=== PATIENT | female | born 1930 | race Caucasian/White ===

== ENCOUNTER 2016-12-13 16:42 | Inpatient (IN) | payer MEDICARE, MEDICAID ==
[~2016-12-13] VITALS: Ht 154.9 cm; Wt 60.3 kg
--- NOTE | 2016-12-13 17:31 | Emergency Room Report ---
History of Present Illness General Chief Complaint: Multiple Trauma/Fall Source: Patient Present Illness HPI This is an 86-year-old female presented after having a recent fall. Patient had been noted to have multiple episodes of falls over the past 2 weeks. Patient had become increasingly dizzy. She was noted to be taking meclizine patient had also been noted to have some increased swelling to her left ankle. Patient had been followed by Dr. Mark Anthony Smith. 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 Review of Systems All Other Systems: negative except mentioned in HPI Physical Exam Vital Signs Date Time Temp Pulse Resp B/P Pulse Ox O2 Delivery O2 Flow Rate FiO2 12/13/16 16:40 98.2 71 12 175/90 99 Room Air Sp02 EP Interpretation: reviewed, normal General Appearance: normal inspection, well appearing, no apparent distress, alert, GCS 15 Head: atraumatic ENT: normal ENT inspection, hearing grossly normal, normal voice Neck: normal inspection, full range of motion, supple, no bony tend Respiratory: normal inspection, lungs clear, normal breath sounds, no respiratory distress, no retraction, no wheezing Cardiovascular #1: regular rate, rhythm, no edema Gastrointestinal: normal inspection, normal bowel sounds, non tender, soft, no guarding, no hernia Genitourinary: no CVA tenderness Musculoskeletal: normal inspection, back normal, normal range of motion Neurologic: normal inspection, alert, oriented x3, responsive, 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 X -ray imaging of the left foot presentation rhythm me showed degenerative changes without evident fracture. X-ray of the left tib-fib 3 views interpreted by me showed had degenerative changes without evident fracture normal bony. The pelvis x-ray one view interpreted by me showed degenerative changes without evident fracture. The patient was noted to have a concern for generalized weakness. Patient noted be living by herself. She reportedly has a caregiver who is present [address] Hilliard was contacted for inpatient management due to complexity of medical condition. Laboratory Tests Test 12/13/16 17:20 White Blood Count 4.8 K/UL (4.8-10.8) Red Blood Count 3.91 M/UL (4.20-5.40) L Hemoglobin 13.1 G/DL (12.0-16.0) Hematocrit 38.6 % (37.0-47.0) Mean Corpuscular Volume 99 FL (80-99) Mean Corpuscular Hemoglobin 33.6 PG (27.0-31.0) H Mean Corpuscular Hemoglobin Concent 34.1 G/DL (32.0-36.0) Red Cell Distribution Width 12.9 % (11.6-14.8) Platelet Count 214 K/UL (150-450) Mean Platelet Volume 6.4 FL (6.5-10.1) L Neutrophils (%) (Auto) 70.9 % (45.0-75.0) Lymphocytes (%) (Auto) 13.1 % (20.0-45.0) L Monocytes (%) (Auto) 5.8 % (1.0-10.0) Eosinophils (%) (Auto) 8.5 % (0.0-3.0) H Basophils (%) (Auto) 1.8 % (0.0-2.0) Sodium Level 134 mEQ/L (135-145) L Potassium Level 4.0 mEQ/L (3.4-4.9) Chloride Level 97 mEQ/L (98-107) L Carbon Dioxide Level 25 mEQ/L (20-30) Anion Gap 12 (5-15) Blood Urea Nitrogen 11 mg/dL (7-23) Creatinine 0.8 mg/dL (0.5-0.9) Estimate Glomerular Filtration Rate mL/min (>60) Glucose Level 104 mg/dL (74-106) Calcium Level 10.0 mg/dL (8.6-10.2) Total Bilirubin < 0.2 mg/dL (0.0-1.2) Aspartate Amino Transferase (AST) 12 U/L (5-40) Alanine Aminotransferase (ALT) 9 U/L (3-33) Alkaline Phosphatase 92 U/L (35-104) Total Protein 7.0 g/dL (6.6-8.7) Albumin 3.9 g/dL (3.5-5.2) Globulin 3.1 g/dL Albumin/Globulin Ratio 1.2 (1.0-2.7) EKG Diagnostic Results Rate: normal - 77 Rhythm: NSR ST Segments: other - biphasic tw waves Rhythm Strip Diag. Results EP Interpretation: yes Rhythm: NSR, no PVC's, no ectopy Last Vital Signs Date Time Temp Pulse Resp B/P Pulse Ox O2 Delivery O2 Flow Rate FiO2 12/13/16 16:40 98.2 71 12 175/90 99 Room Air Status: unchanged Disposition: ADMITTED INPATIENT Condition: Serious Referrals: NOT CHOSEN DARY/,REFERRING (PCP) Gabe Dillon Dec 13, 2016 17:31
[2016-12-13] MEDS ORDERED: LYRICA75 M1 ORAL (17:42)
[2016-12-13] MEDS ORDERED: IBUPROFEN600 MG ORAL (17:42)
[2016-12-13] MEDS ORDERED: TRAMADOL HCL50 MG ORAL (17:42)
[2016-12-13] MEDS ORDERED: ELMIRON100 MG ORAL (17:42)
[2016-12-13] MEDS ORDERED: MONTELUKAST SOD10 MG ORAL (17:42)
[2016-12-13] MEDS ORDERED: FERROUS SULFAT325 MG ORAL (17:42)
[2016-12-13] MEDS ORDERED: VOLTAREN100 G1 TP (17:42)
[2016-12-13] MEDS ORDERED: DEXILANT60 MG ORAL (17:42)
[2016-12-13] MEDS ORDERED: BELSOMRA20 MG PO (17:42)
[2016-12-13] MEDS ORDERED: KLONOPIN1 MG ORAL (17:42)
[2016-12-13] MEDS ORDERED: MECLIZINE HCL25 MG ORAL (17:42)
[2016-12-13] MEDS ORDERED: PATADAY2.5 ML OP (17:42)
[2016-12-13] MEDS ORDERED: MYRBETRIQ25 MG PO (17:42)
[2016-12-13] MEDS ORDERED: NASONEX17 GM NASAL (17:42)
[2016-12-13] MEDS ORDERED: OLMESARTAN MEDO20 MG PO (17:42)
[2016-12-13] MEDS ORDERED: ROPINIROLE HC0.25 MG PO (17:42)
[2016-12-13 17:46] LABS: BASOPHILS % (AUTO) 1.8 % (0.0-2.0); EOSINOPHILS % (AUTO) 8.5 % (0.0-3.0); LYMPHOCYTES % (AUTO) 13.1 % (20.0-45.0); MEAN CORPUSCULAR HEMOGLOBIN 33.6 PG (27.0-31.0); MEAN CORPUSCULAR HGB CONC 34.1 G/DL (32.0-36.0); MEAN CORPUSCULAR VOLUME 99 FL (80-99); MEAN PLATELET VOLUME 6.4 FL (6.5-10.1); MONOCYTES % (AUTO) 5.8 % (1.0-10.0); NEUTROPHILS % (AUTO) 70.9 % (45.0-75.0); PLATELET COUNT 214 K/UL (150-450); RED BLOOD COUNT 3.91 M/UL (4.20-5.40); RED CELL DISTRIBUTION WIDTH 12.9 % (11.6-14.8); WHITE BLOOD COUNT 4.8 K/UL (4.8-10.8)
[2016-12-13 17:51] LABS: ALANINE AMINOTRANSFERASE 9 U/L (3-33); ALBUMIN/GLOBULIN RATIO 1.2 (1.0-2.7); ANION GAP 12 (5-15); ASPARTATE AMINO TRANSFERASE 12 U/L (5-40); CARBON DIOXIDE 25 mEQ/L (20-30); CHLORIDE 97 mEQ/L (98-107); CREATININE 0.8 mg/dL (0.5-0.9); HEMOLYSIS 2; SODIUM 134 mEQ/L (135-145)
[2016-12-13 19:44] VITALS: BP 166/82
[2016-12-13] MEDS ORDERED: Miralax 17gm pkt ORAL PRN (20:00)
[2016-12-13] MEDS ORDERED: Nitroglycerin Subl 0.4mg tab (Bottle Of 25) SL PRN (20:00)
[2016-12-13] MEDS ORDERED: Mylanta II UD 30ml ORAL PRN (20:00)
[2016-12-13] MEDS ORDERED: DuoNeb 0.5-3(2.5)mg/3ml neb HHN PRN (20:00)
[2016-12-13] MEDS ORDERED: LORazepam Inj 2mg/ml 1ml IV PRN (20:00)
[2016-12-13 20:44] VITALS: BP 197/95
[2016-12-13] MEDS: Heparin 5000 units/ml inj SUBQ SCH (22:16)
[2016-12-13 23:53] VITALS: BP 150/73
[2016-12-14 03:55] VITALS: BP 150/76
[2016-12-14 07:46] LABS: INR 0.9 (0.9-1.1); PROTHROMBIN TIME 9.9 SEC (9.30-11.50)
[2016-12-14 07:54] LABS: BASOPHILS % (AUTO) 1.1 % (0.0-2.0); EOSINOPHILS % (AUTO) 11.6 % (0.0-3.0); LYMPHOCYTES % (AUTO) 15.8 % (20.0-45.0); MEAN CORPUSCULAR HEMOGLOBIN 32.2 PG (27.0-31.0); MEAN CORPUSCULAR HGB CONC 33.1 G/DL (32.0-36.0); MEAN CORPUSCULAR VOLUME 97 FL (80-99); NEUTROPHILS % (AUTO) 63.6 % (45.0-75.0); PLATELET COUNT 208 K/UL (150-450); RED BLOOD COUNT 3.86 M/UL (4.20-5.40); RED CELL DISTRIBUTION WIDTH 12.6 % (11.6-14.8); WHITE BLOOD COUNT 3.8 K/UL (4.8-10.8)
[2016-12-14 08:00] VITALS: BP 142/74
[2016-12-14 08:01] LABS: ALANINE AMINOTRANSFERASE 9 U/L (3-33); ALBUMIN/GLOBULIN RATIO 1.3 (1.0-2.7); ANION GAP 14 (5-15); ASPARTATE AMINO TRANSFERASE 12 U/L (5-40); CALCIUM 9.4 mg/dL (8.6-10.2); CARBON DIOXIDE 23 mEQ/L (20-30); CHLORIDE 100 mEQ/L (98-107); CHOLESTEROL 276 mg/dL (< 200); CHOLESTEROL/HDL RATIO 4.9 (3.3-4.4); CREATININE 0.7 mg/dL (0.5-0.9); HEMOLYSIS 2; LDL CHOLESTEROL (CALC.) 182 mg/dL (60-99); POTASSIUM 3.9 mEQ/L (3.4-4.9); SODIUM 137 mEQ/L (135-145); TOTAL PROTEIN 6.5 g/dL (6.6-8.7)
[2016-12-14] MEDS ORDERED: Lyrica 50mg cap ORAL SCH (09:00)
[2016-12-14] MEDS: rOPINIRole 0.25mg tab ORAL SCH ×2 (09:11→13:00)
[2016-12-14] MEDS: Morphine Sulfate 2mg/ml Inj IVP PRN ×2 (09:13→09:23)
[2016-12-14] MEDS: Heparin 5000 units/ml inj SUBQ SCH (09:14)
--- NOTE | 2016-12-14 09:46 | Diagnostic Imaging Report ---
Indication: PAIN Technique: spiral acquisitions obtained through the brain. Angled axial and coronal 5 x 5 mm slices were reconstructed. No IV contrast utilized. Radiation dose was minimized using automated exposure control Total dose length product 1474 mGycm. CTDIvol(s) 70 mGy Comparison: none FINDINGS: No acute hemorrhage or edema. No mass effect or midline shift. There is age-related enlargement of the ventricles and extra axial CSF spaces. There is periventricular deep white matter ischemic change. Normal greenberg-white differentiation. Visualized orbits are unremarkable. Visualized sinuses are unremarkable. Intact calvarium. IMPRESSION: Chronic and age-related changes. Negative for acute intracranial bleed or mass effect This agrees with the preliminary interpretation provided overnight by Dr. Hsu The CT scanner at [facility] is accredited by the [employer] and the scans are performed using protocols designed to limit radiation exposure to as low as reasonably achievable to attain images of sufficient resolution adequate for diagnostic evaluation
--- NOTE | 2016-12-14 10:36 | Diagnostic Imaging Report ---
Indication: PAIN Technique: 3 views of the left ankle Comparison: none Findings: No acute fractures. No dislocations. Bones are osteoporotic. Joint spaces are preserved. Impression: Osteoporosis No definite acute bony trauma
--- NOTE | 2016-12-14 10:38 | Diagnostic Imaging Report ---
Indication: PAIN Technique: 3 views left foot Comparison: none Findings: No acute fractures. No dislocations. There are hammertoe deformities of the second through fifth digits. The joint spaces are preserved. The bones are osteoporotic Impression: No acute bony trauma . Findings as noted
--- NOTE | 2016-12-14 10:41 | Diagnostic Imaging Report ---
Indication: PAIN Technique: One view of the pelvis Comparison: None Findings: Calcification in the mid pelvis is consistent with old uterine fibroid. No definite acute fractures. No dislocations. Joint spaces are preserved. Bones are osteoporotic. There are degenerative changes of the lumbosacral junction. Surgical clip is seen in the left pelvis Impression: No definite acute bony trauma Note, however, that in elderly osteoporotic patients, nondisplaced hip or pelvic fractures can easily be occult. Consider bone scan or cross-sectional imaging for further evaluation if there is high clinical suspicion
[2016-12-14 12:00] VITALS: BP 148/73
--- NOTE | 2016-12-14 14:19 | Neurology Progress Note ---
Objective Physical Exam Last Vital Signs Date Time Temp Pulse Resp B/P Pulse Ox O2 Delivery O2 Flow Rate FiO2 12/14/16 12:00 97.7 75 19 148/73 92 Room Air Laboratory Tests Test 12/13/16 17:20 12/14/16 06:15 White Blood Count 4.8 K/UL (4.8-10.8) 3.8 K/UL (4.8-10.8) L Red Blood Count 3.91 M/UL (4.20-5.40) L 3.86 M/UL (4.20-5.40) L Hemoglobin 13.1 G/DL (12.0-16.0) 12.4 G/DL (12.0-16.0) Hematocrit 38.6 % (37.0-47.0) 37.6 % (37.0-47.0) Mean Corpuscular Volume 99 FL (80-99) 97 FL (80-99) Mean Corpuscular Hemoglobin 33.6 PG (27.0-31.0) H 32.2 PG (27.0-31.0) H Mean Corpuscular Hemoglobin Concent 34.1 G/DL (32.0-36.0) 33.1 G/DL (32.0-36.0) Red Cell Distribution Width 12.9 % (11.6-14.8) 12.6 % (11.6-14.8) Platelet Count 214 K/UL (150-450) 208 K/UL (150-450) Mean Platelet Volume 6.4 FL (6.5-10.1) L 6.0 FL (6.5-10.1) L Neutrophils (%) (Auto) 70.9 % (45.0-75.0) 63.6 % (45.0-75.0) Lymphocytes (%) (Auto) 13.1 % (20.0-45.0) L 15.8 % (20.0-45.0) L Monocytes (%) (Auto) 5.8 % (1.0-10.0) 8.0 % (1.0-10.0) Eosinophils (%) (Auto) 8.5 % (0.0-3.0) H 11.6 % (0.0-3.0) H Basophils (%) (Auto) 1.8 % (0.0-2.0) 1.1 % (0.0-2.0) Sodium Level 134 mEQ/L (135-145) L 137 mEQ/L (135-145) Potassium Level 4.0 mEQ/L (3.4-4.9) 3.9 mEQ/L (3.4-4.9) Chloride Level 97 mEQ/L (98-107) L 100 mEQ/L (98-107) Carbon Dioxide Level 25 mEQ/L (20-30) 23 mEQ/L (20-30) Anion Gap 12 (5-15) 14 (5-15) Blood Urea Nitrogen 11 mg/dL (7-23) 11 mg/dL (7-23) Creatinine 0.8 mg/dL (0.5-0.9) 0.7 mg/dL (0.5-0.9) Estimat Glomerular Filtration Rate mL/min (>60) mL/min (>60) Glucose Level 104 mg/dL (74-106) 113 mg/dL (74-106) H Calcium Level 10.0 mg/dL (8.6-10.2) 9.4 mg/dL (8.6-10.2) Total Bilirubin < 0.2 mg/dL (0.0-1.2) 0.2 mg/dL (0.0-1.2) Aspartate Amino Transf (AST/SGOT) 12 U/L (5-40) 12 U/L (5-40) Alanine Aminotransferase (ALT/SGPT) 9 U/L (3-33) 9 U/L (3-33) Alkaline Phosphatase 92 U/L (35-104) 85 U/L (35-104) Total Protein 7.0 g/dL (6.6-8.7) 6.5 g/dL (6.6-8.7) L Albumin 3.9 g/dL (3.5-5.2) 3.7 g/dL (3.5-5.2) Globulin 3.1 g/dL 2.8 g/dL Albumin/Globulin Ratio 1.2 (1.0-2.7) 1.3 (1.0-2.7) Prothrombin Time 9.9 SEC (9.30-11.50) Prothromb Time International Ratio 0.9 (0.9-1.1) Activated Partial Thromboplast Time 30 SEC (23-33) Triglycerides Level 189 mg/dL (< 150) H Cholesterol Level 276 mg/dL (< 200) H LDL Cholesterol 182 mg/dL (60-99) H HDL Cholesterol 56 mg/dL (> 60) Cholesterol/HDL Ratio 4.9 (3.3-4.4) H Thyroid Stimulating Hormone (TSH) 3.450 uIU/mL (0.300-4.500) Impression/Recommendations Problems: (1) Paraparesis of both lower limbs (2) r/o spinal stenosis Recommendations #[id number] JOE PERKINS Dec 14, 2016 14:19
--- NOTE | 2016-12-14 14:42 | History and Physical ---
History of Present Illness General Date patient seen: Dec 13, 2016 Reason for Hospitalization: Multiple Trauma/Fall Present Illness HPI 86-year-old female with hx of HTN, dizziness, on multiple meds presented after having a recent fall. Patient had been noted to have multiple episodes of falls over the past 2 weeks. Patient had become increasingly dizzy. She didn' t loose consciousness. she is complaining of left ankle pain. XR's in ER didn' t show any fracture. Allergies: Coded Allergies: No Known Allergies (Unverified , 12/13/16) Medication History Scheduled Clonazepam* (Klonopin*), 1 MG ORAL TID, (Reported) Dexlansoprazole (Dexilant), 60 MG ORAL DAILY, (Reported) Diclofenac Sodium (Voltaren), 100 GM TP PRN, (Reported) Ferrous Sulfate* (Ferrous Sulfate*), 325 MG ORAL DAILY, (Reported) Meclizine Hcl* (Meclizine*), 25 MG ORAL THREE TIMES A DAY, (Reported) Mirabegron (Myrbetriq), 25 MG PO DAILY, (Reported) Mometasone Furoate (Nasonex), 2 SPRAYS NASAL DAILY, (Reported) Montelukast Sodium* (Montelukast Sodium*), 10 MG ORAL DAILY, (Reported) Olmesartan Medoxomil (Olmesartan Medoxomil), 20 MG PO DAILY, (Reported) Pentosan Polysulfate Sodium* (Elmiron*), 100 MG ORAL DAILY, (Reported) Pregabalin* (Lyrica*), 50 MG ORAL DAILY, (Reported) Ropinirole Hcl* (Ropinirole Hcl*), 0.25 MG PO TID, (Reported) Suvorexant (Belsomra), 20 MG PO DAILY, (Reported) Scheduled PRN Ibuprofen* (Motrin*), 600 MG ORAL Q6H PRN for For Pain, (Reported) Tramadol Hcl* (Ultram*), 50 MG ORAL Q6H PRN for For Pain, (Reported) Miscellaneous Medications Olopatadine Hcl (Pataday), 2.5 ML OP, (Reported) Patient History Healthcare decision maker Resuscitation status Full Code Advanced Directive on File No Past Medical/Surgical History Past Medical/Surgical History: (1) Paraparesis of both lower limbs (2) Generalized weakness Review of Systems All Other Systems: negative except mentioned in HPI Physical Exam General Appearance: WD/WN Lines, tubes and drains: peripheral HEENT: normocephalic, anicteric Neck: non-tender, normal alignment Respiratory/Chest: chest wall non-tender, normal breath sounds Breasts: no masses Cardiovascular/Chest: normal peripheral pulses Abdomen: normal bowel sounds, non tender Genitourinary/Rectal: normal genital exam Extremities: normal range of motion 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 Last 24 Hour Vital Signs Date Time Temp Pulse Resp B/P Pulse Ox O2 Delivery O2 Flow Rate FiO2 12/14/16 12:00 97.7 75 19 148/73 92 Room Air 12/14/16 08:00 97.9 69 19 142/74 95 Room Air 12/14/16 07:39 Room Air 12/14/16 07:38 95 Room Air 12/14/16 07:37 71 18 Room Air 12/14/16 04:39 71 12/14/16 03:55 97.2 72 18 150/76 92 Room Air 12/14/16 00:00 78 12/13/16 23:53 96.8 80 18 150/73 92 Room Air 12/13/16 20:44 97.8 70 19 197/95 94 Room Air 12/13/16 20:13 73 15 165/68 98 Room Air 12/13/16 19:44 98.9 75 15 166/82 96 Room Air 12/13/16 16:40 98.2 71 12 175/90 99 Room Air Laboratory Tests Test 12/13/16 17:20 12/14/16 06:15 White Blood Count 4.8 K/UL (4.8-10.8) 3.8 K/UL (4.8-10.8) L Red Blood Count 3.91 M/UL (4.20-5.40) L 3.86 M/UL (4.20-5.40) L Hemoglobin 13.1 G/DL (12.0-16.0) 12.4 G/DL (12.0-16.0) Hematocrit 38.6 % (37.0-47.0) 37.6 % (37.0-47.0) Mean Corpuscular Volume 99 FL (80-99) 97 FL (80-99) Mean Corpuscular Hemoglobin 33.6 PG (27.0-31.0) H 32.2 PG (27.0-31.0) H Mean Corpuscular Hemoglobin Concent 34.1 G/DL (32.0-36.0) 33.1 G/DL (32.0-36.0) Red Cell Distribution Width 12.9 % (11.6-14.8) 12.6 % (11.6-14.8) Platelet Count 214 K/UL (150-450) 208 K/UL (150-450) Mean Platelet Volume 6.4 FL (6.5-10.1) L 6.0 FL (6.5-10.1) L Neutrophils (%) (Auto) 70.9 % (45.0-75.0) 63.6 % (45.0-75.0) Lymphocytes (%) (Auto) 13.1 % (20.0-45.0) L 15.8 % (20.0-45.0) L Monocytes (%) (Auto) 5.8 % (1.0-10.0) 8.0 % (1.0-10.0) Eosinophils (%) (Auto) 8.5 % (0.0-3.0) H 11.6 % (0.0-3.0) H Basophils (%) (Auto) 1.8 % (0.0-2.0) 1.1 % (0.0-2.0) Sodium Level 134 mEQ/L (135-145) L 137 mEQ/L (135-145) Potassium Level 4.0 mEQ/L (3.4-4.9) 3.9 mEQ/L (3.4-4.9) Chloride Level 97 mEQ/L (98-107) L 100 mEQ/L (98-107) Carbon Dioxide Level 25 mEQ/L (20-30) 23 mEQ/L (20-30) Anion Gap 12 (5-15) 14 (5-15) Blood Urea Nitrogen 11 mg/dL (7-23) 11 mg/dL (7-23) Creatinine 0.8 mg/dL (0.5-0.9) 0.7 mg/dL (0.5-0.9) Estimat Glomerular Filtration Rate mL/min (>60) mL/min (>60) Glucose Level 104 mg/dL (74-106) 113 mg/dL (74-106) H Calcium Level 10.0 mg/dL (8.6-10.2) 9.4 mg/dL (8.6-10.2) Total Bilirubin < 0.2 mg/dL (0.0-1.2) 0.2 mg/dL (0.0-1.2) Aspartate Amino Transf (AST/SGOT) 12 U/L (5-40) 12 U/L (5-40) Alanine Aminotransferase (ALT/SGPT) 9 U/L (3-33) 9 U/L (3-33) Alkaline Phosphatase 92 U/L (35-104) 85 U/L (35-104) Total Protein 7.0 g/dL (6.6-8.7) 6.5 g/dL (6.6-8.7) L Albumin 3.9 g/dL (3.5-5.2) 3.7 g/dL (3.5-5.2) Globulin 3.1 g/dL 2.8 g/dL Albumin/Globulin Ratio 1.2 (1.0-2.7) 1.3 (1.0-2.7) Prothrombin Time 9.9 SEC (9.30-11.50) Prothromb Time International Ratio 0.9 (0.9-1.1) Activated Partial Thromboplast Time 30 SEC (23-33) Triglycerides Level 189 mg/dL (< 150) H Cholesterol Level 276 mg/dL (< 200) H LDL Cholesterol 182 mg/dL (60-99) H HDL Cholesterol 56 mg/dL (> 60) Cholesterol/HDL Ratio 4.9 (3.3-4.4) H Thyroid Stimulating Hormone (TSH) 3.450 uIU/mL (0.300-4.500) Height (Feet): 5 Height (Inches): 1.00 Weight (Pounds): 133 Medications Current Medications Medications (Trade) Dose Ordered Sig/Maryanne Route PRN Reason Start Time Stop Time Status Last Admin Dose Admin Acetaminophen (Tylenol) 650 mg Q4H PRN ORAL fever 12/13/16 20:00 01/12/17 19:59 12/14/16 09:28 Al Hydroxide/Mg Hydroxide (Mylanta II) 30 ml Q6H PRN ORAL dyspepsia 12/13/16 20:00 8/26/17 19:59 Albuterol/ Ipratropium (DuoNeb 0.5-3(2.5)mg/3ml) 3 ml Q4H PRN HHN Shortness of Breath 12/13/16 20:00 12/18/16 19:59 Clonidine HCl (Catapres) 0.1 mg Q4H PRN ORAL SBP > 160 12/13/16 20:00 01/12/17 19:59 Dextrose (Dextrose 50%) STAT PRN IV Hypoglycemia 12/13/16 20:00 01/12/17 19:59 Heparin Sodium (Porcine) (Heparin 5000 units/ml) 5,000 units EVERY 12 HOURS SUBQ 12/13/16 21:00 01/12/17 20:59 12/14/16 09:14 Lorazepam (Ativan 2mg/ml 1ml) 0.5 mg Q4H PRN IV For Anxiety 12/13/16 20:00 12/20/16 19:59 Morphine Sulfate (Morphine Sulfate) 1 mg Q4H PRN IVP For Pain 7-12/13/16 20:00 12/20/16 19:59 12/14/16 09:13 Nitroglycerin (Ntg) 0.4 mg Q5M X 3 DOSES PRN SL Prn Chest Pain 12/13/16 20:00 01/12/17 19:59 Ondansetron HCl (Zofran) 4 mg Q6H PRN IVP Nausea & Vomiting 12/13/16 20:00 01/12/17 19:59 Polyethylene Glycol (Miralax) 17 gm HSPRN PRN ORAL Constipation 12/13/16 20:00 01/12/17 19:59 Pregabalin (Lyrica) 50 mg DAILY ORAL 12/14/16 09:00 01/13/17 08:59 Ropinirole HCl (Requip) 0.25 mg TID ORAL 12/14/16 09:00 01/13/17 08:59 12/14/16 09:11 Temazepam (Restoril) 15 mg HSPRN PRN ORAL Insomnia 12/13/16 20:00 12/20/16 19:59 12/13/16 22:16 Assessment/Plan Problem List: (1) Near syncope ICD Codes: R55 - Syncope and collapse SNOMED: 313975075, 524225851 (2) intractable dizziness (3) Paraparesis of both lower limbs ICD Codes: G82.20 - Paraplegia, unspecified SNOMED: 7949410 (4) Fall ICD Codes: W19.XXXA - Unspecified fall, initial encounter SNOMED: 0873706, 656490860 (5) Generalized weakness ICD Codes: R53.1 - Weakness SNOMED: 11186976 Assessment/Plan telemetry neuro evaluation echocardiogram doppler of carotid artery. dvt prophylaxis. DIALLO LYNN Dec 14, 2016 14:42
--- NOTE | 2016-12-14 14:44 | Pulmonology Progress Note ---
Assessment/Plan Problems: (1) Near syncope (2) intractable dizziness (3) Paraparesis of both lower limbs (4) Fall (5) Generalized weakness Assessment/Plan talked to daughter at the bed site pt/ot pending neuro evaluating now echo done, results pending. Subjective ROS Limited/Unobtainable: No Interval Events: no new complains Allergies: Coded Allergies: No Known Allergies (Unverified , 12/13/16) Objective Last 24 Hour Vital Signs Date Time Temp Pulse Resp B/P Pulse Ox O2 Delivery O2 Flow Rate FiO2 12/14/16 12:00 97.7 75 19 148/73 92 Room Air 12/14/16 08:00 97.9 69 19 142/74 95 Room Air 12/14/16 07:39 Room Air 12/14/16 07:38 95 Room Air 12/14/16 07:37 71 18 Room Air 12/14/16 04:39 71 12/14/16 03:55 97.2 72 18 150/76 92 Room Air 12/14/16 00:00 78 12/13/16 23:53 96.8 80 18 150/73 92 Room Air 12/13/16 20:44 97.8 70 19 197/95 94 Room Air 12/13/16 20:13 73 15 165/68 98 Room Air 12/13/16 19:44 98.9 75 15 166/82 96 Room Air 12/13/16 16:40 98.2 71 12 175/90 99 Room Air General Appearance: cachetic HEENT: normocephalic, atraumatic, PERRL Respiratory/Chest: lungs clear Cardiovascular: normal peripheral pulses, normal rate Abdomen: normal bowel sounds, soft, non tender Extremities: no cyanosis 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, normal mood/affect Musculoskeletal: normal muscle bulk Laboratory Tests 12/13/16 17:20: White Blood Count 4.8, Red Blood Count 3.91L, Hemoglobin 13.1, Hematocrit 38.6, Mean Corpuscular Volume 99, Mean Corpuscular Hemoglobin 33.6H, Mean Corpuscular Hemoglobin Concent 34.1, Red Cell Distribution Width 12.9, Platelet Count 214, Mean Platelet Volume 6.4L, Neutrophils (%) (Auto) 70.9, Lymphocytes (%) (Auto) 13.1L, Monocytes (%) (Auto) 5.8, Eosinophils (%) (Auto) 8.5H, Basophils (%) ( Auto) 1.8, Sodium Level 134L, Potassium Level 4.0, Chloride Level 97L, Carbon Dioxide Level 25, Anion Gap 12, Blood Urea Nitrogen 11, Creatinine 0.8, Estimat Glomerular Filtration Rate , Glucose Level 104, Calcium Level 10.0, Total Bilirubin < 0.2, Aspartate Amino Transf (AST/SGOT) 12, Alanine Aminotransferase (ALT/SGPT) 9, Alkaline Phosphatase 92, Total Protein 7.0, Albumin 3.9, Globulin 3.1, Albumin/Globulin Ratio 1.2 12/14/16 06:15: White Blood Count 3.8L, Red Blood Count 3.86L, Hemoglobin 12.4, Hematocrit 37.6 , Mean Corpuscular Volume 97, Mean Corpuscular Hemoglobin 32.2H, Mean Corpuscular Hemoglobin Concent 33.1, Red Cell Distribution Width 12.6, Platelet Count 208, Mean Platelet Volume 6.0L, Neutrophils (%) (Auto) 63.6, Lymphocytes ( %) (Auto) 15.8L, Monocytes (%) (Auto) 8.0, Eosinophils (%) (Auto) 11.6H, Basophils (%) (Auto) 1.1, Sodium Level 137, Potassium Level 3.9, Chloride Level 100, Carbon Dioxide Level 23, Anion Gap 14, Blood Urea Nitrogen 11, Creatinine 0.7, Estimat Glomerular Filtration Rate , Glucose Level 113H, Calcium Level 9.4 , Total Bilirubin 0.2, Aspartate Amino Transf (AST/SGOT) 12, Alanine Aminotransferase (ALT/SGPT) 9, Alkaline Phosphatase 85, Total Protein 6.5L, Albumin 3.7, Globulin 2.8, Albumin/Globulin Ratio 1.3, Prothrombin Time 9.9, Prothromb Time International Ratio 0.9, Activated Partial Thromboplast Time 30, Triglycerides Level 189H, Cholesterol Level 276H, LDL Cholesterol 182H, HDL Cholesterol 56, Cholesterol/HDL Ratio 4.9H, Thyroid Stimulating Hormone (TSH) 3.450 Current Medications Medications (Trade) Dose Ordered Sig/Maryanne Route PRN Reason Start Time Stop Time Status Last Admin Dose Admin Acetaminophen (Tylenol) 650 mg Q4H PRN ORAL fever 12/13/16 20:00 01/12/17 19:59 12/14/16 09:28 Al Hydroxide/Mg Hydroxide (Mylanta II) 30 ml Q6H PRN ORAL dyspepsia 12/13/16 20:00 01/12/17 19:59 Albuterol/ Ipratropium (DuoNeb 0.5-3(2.5)mg/3ml) 3 ml Q4H PRN HHN Shortness of Breath 12/13/16 20:00 12/18/16 19:59 Clonidine HCl (Catapres) 0.1 mg Q4H PRN ORAL SBP > 160 12/13/16 20:00 01/12/17 19:59 Dextrose (Dextrose 50%) STAT PRN IV Hypoglycemia 12/13/16 20:00 01/12/17 19:59 Heparin Sodium (Porcine) (Heparin 5000 units/ml) 5,000 units EVERY 12 HOURS SUBQ 12/13/16 21:00 01/12/17 20:59 12/14/16 09:14 Lorazepam (Ativan 2mg/ml 1ml) 0.5 mg Q4H PRN IV For Anxiety 12/13/16 20:00 12/20/16 19:59 Morphine Sulfate (Morphine Sulfate) 1 mg Q4H PRN IVP For Pain 7-12/13/16 20:00 12/20/16 19:59 12/14/16 09:13 Nitroglycerin (Ntg) 0.4 mg Q5M X 3 DOSES PRN SL Prn Chest Pain 12/13/16 20:00 01/12/17 19:59 Ondansetron HCl (Zofran) 4 mg Q6H PRN IVP Nausea & Vomiting 12/13/16 20:00 01/12/17 19:59 Polyethylene Glycol (Miralax) 17 gm HSPRN PRN ORAL Constipation 12/13/16 20:00 01/12/17 19:59 Pregabalin (Lyrica) 50 mg DAILY ORAL 12/14/16 09:00 01/13/17 08:59 Ropinirole HCl (Requip) 0.25 mg TID ORAL 12/14/16 09:00 01/13/17 08:59 12/14/16 09:11 Temazepam (Restoril) 15 mg HSPRN PRN ORAL Insomnia 12/13/16 20:00 12/20/16 19:59 12/13/16 22:16 DIALLO LYNN Dec 14, 2016 14:44
[2016-12-14 16:00] VITALS: BP 153/88
--- NOTE | 2016-12-15 01:46 | Consultation ---
DATE OF CONSULTATION: 12/14/2016 NEUROLOGICAL CONSULTATION CONSULTING PHYSICIAN: Walt Santoyo M.D. REQUESTING PHYSICIAN: Kristen Hilliard M.D. HISTORY OF PRESENT ILLNESS: This is an 86-year-old female, seen in neurological consultation to evaluate a recent onset of recurrent fall. The patient informed me that about a month ago, she started to develop increasing difficulty with balance. She would use initially cane, but still was unable to hold on and fall so she started to use walker, even with a walker she had a recent fall when she was at home alone, she was found by the family one or two hours later, there was no loss of consciousness. No urine or bowel incontinence. No tongue biting, but there were multiple bruises from fall including a bump on her head. The patient now was brought to this facility after having another episode of fall. She described it as she was standing up from her bed and tried to use walker, she lost balance and fell down. Again, there was no loss of consciousness or other associated symptomatology. The patient apparently was suspected to have dizziness, started on meclizine, felt no improvement. On arrival to the hospital, blood pressure 175/90, temperature 98.2. Head normocephalic. There is no evidence of trauma. There was swelling on the left foot. Laboratory work was obtained revealed normal CBC studies, normal coagulation panel, and chemistry panel with elevated triglycerides 189, LDL 182, and glucose 113 otherwise normal study. Imaging included CT of the brain revealed chronic age-related changes, enlargement of ventricles, periventricular deep white matter ischemic changes. X-ray of the hip and pelvis, no fracture, but there is osteoporosis and degenerative changes. Her x-ray of the foot, no acute bony abnormalities and x-ray of ankle signs of osteoporosis, no fractures noted. Since admission till present, there was no further changes in her status. The patient had 2D echocardiogram revealed ejection fraction of 55% and 60% with no evidence of mural thrombi noted. 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 MEDICATIONS: She is on Voltaren, ferrous sulfate, Motrin, meclizine, Myrbetriq, Nasonex, , Elmiron, allopurinol, Belsomra, and tramadol as needed. ALLERGIES: None reported. SOCIAL HISTORY: Lives at home alone, but refusing to have a home care or caregiver. Family helps her on daily basis. No alcohol. No drug abuse. Nonsmoker. FAMILY HISTORY: Noncontributory. REVIEW OF SYMPTOMS: Generalized aches and pains from falling, but denies headache. No vertigo. There is some decrease in hearing. No urine or bowel incontinence. Never had a transient loss of consciousness. No seizure activities. No chest pain. No palpitations. Denies respiratory abnormality. No abdominal pain or discomfort. PHYSICAL EXAMINATION: GENERAL: A well-developed and well-nourished, elderly lady, lying comfortably in bed. Her family at bedside. VITAL SIGNS: Stable. Blood pressure 142/73 and temperature 97.7. HEENT: Head normocephalic. There is no head trauma. Eyes, ears, and throat are clear. Edentulous. NECK: Supple. No meningeal signs. MUSCULOSKELETAL EXAMINATION: Tenderness to palpation of lumbar paraspinal region. Tenderness to palpation on areas of bruise on her both lower extremities with multiple bruises noted. Peripheral pulses 1+ symmetric. MENTAL STATUS: She is fully alert and oriented x3. Speech is fluent. Language intact. There is no aphasia or apraxia. Cognitive function normal. CRANIAL NERVE II: Pupils both responding to light and accommodation. Extraocular movements intact. No nystagmus. CRANIAL NERVE V: Normal corneal responses. CRANIAL NERVE VII: No facial asymmetry. CRANIAL NERVE VIII: Grossly normal hearing. CRANIAL NERVES IX THROUGH XII: Tongue is in midline. Symmetric palate elevation. MOTOR EXAMINATION: Normal muscle tone. Strength in both upper extremities. No pronation drift. There is a slight decrease in strength in both lower extremities 5-/5, but 3/5 in the hip flexors bilaterally. Deep tendon reflexes depressed. Biceps, triceps, brachioradialis, knee and ankle jerks. Plantar responses flexor. No pathological responses. Normal coordination. Normal szvrhe-py-otac test and slightly somewhat clumsy vjec-rl-[id number] test bilaterally. GAIT: The patient required assistance to sit up. She was able to stand with some assistance. Positive Romberg test. Gait, small steps, antalgic with full assist. IMPRESSION: 1. This is an 86-year-old female with recent onset of progressive gait abnormality and frequent falls now presenting with mild paraparesis predominately hip flexors, rule out lumbar spinal stenosis, rule out polyneuropathy. 2. Deconditioned. 3. Polypharmacy. RECOMMENDATION: 1. Reduce sedatives. 2. Get a CT of the lumbosacral spine. 3. PT and OT. 4. Daily conditioning exercises. 5. The patient need to live in a protected environment. 6. Laboratory work. Thank you for allowing me to see this interesting patient in neurological consultation. Walt Santoyo M.D. DR: DWAIN JOB#: [id number] CC:
[2016-12-17] MEDS ORDERED: ASPIR 8181 MG ORAL (13:13)
[2016-12-17] MEDS ORDERED: ATORVASTATIN CA10 MG ORAL (13:13)
--- NOTE | 2016-12-17 13:21 | Discharge Summary ---
Discharge Summary Hospital Course Date of Admission Dec 13, 2016 at 18:20 Date of Discharge Dec 14, 2016 at 17:53 Admitting Diagnosis generalized weakness, recurrent falls HPI Anayeli Hampton is a 86 year old female who was admitted on Dec 13, 2016 at 18:20 for Generalized Weakness,Recurrent Falls Hospital Course dc summary #[id number] Discharge Medications New Medications: Aspirin* (Aspir 81*) 81 Mg Tablet.dr 81 MG ORAL DAILY, #30 TAB Atorvastatin Calcium* (Lipitor*) 10 Mg Tablet 10 MG ORAL BEDTIME, #30 TAB Continued Medications: Ferrous Sulfate* (Ferrous Sulfate*) 325 Mg Tablet 325 MG ORAL DAILY, #30 TAB 0 Refills Mometasone Furoate (Nasonex) 17 Gm [place].pump 2 SPRAYS NASAL DAILY, GM 0 Refills Ropinirole Hcl* (Ropinirole Hcl*) 0.25 Mg Tablet 0.25 MG PO TID, TAB Tramadol Hcl* (Ultram*) 50 Mg Tablet 50 MG ORAL Q6H PRN for For Pain, #30 TAB 0 Refills Discharge Condition Upon Discharge: stable Discharge Disposition Patient was discharged to Home (01) Discharge Diagnoses: Discharge Instructions Discharge Instructions Special Instructions I have been assigned to complete a D/C Summary on this account. I was not involved in the patient management Zainab Cheema NP ([place]) Dec 17, 2016 13:21
--- NOTE | 2016-12-17 17:24 | Cardiology Report ---
APPROVED REPORT EXAM: Two-dimensional and M-mode echocardiogram with Doppler and color Doppler. INDICATION LV function M-Mode DIMENSIONS IVSd1.3 (0.7-1.1cm)Left Atrium (MM)2.4 (1.6-4.0cm) LVDd4.6 (3.5-5.6cm)Aortic Root3.2 (2.0-3.7cm) PWd1.0 (0.7-1.1cm)Aortic Cusp Exc.1.6 (1.5-2.0cm) LVDs3.5 (2.5-4.0cm) PWs1.5 cm Limited Echo study because pt requested to terminate study early due to her pain. Normal left ventricular chamber size, systolic function and wall motion. Left ventricular ejection fraction estimated to be 55-60 %. Moderate left ventricular hypertrophy. Anterior Echo-free space, may be due to pericardial fat or effusion. All other cardiac chamber sizes appear within normal limits. Focal aortic valve sclerosis with adequate cusp excursion. Thickened mitral valve leaflets with normal excursion. Mitral annulus and aortic root calcification. Pulmonic valve not visualized. Normal tricuspid valve structure. No subcostal views obtained. A color flow and spectral Doppler study was performed and revealed: Mild aortic regurgitation. Mild mitral regurgitation. Mild tricuspid regurgitation. Trace pulmonic regurgitation present.
--- NOTE | 2016-12-17 18:36 | Cardiology Report ---
APPROVED REPORT EKG Measurement Heart [id number] Normal sinus rhythm with sinus arrhythmia Nonspecific T wave abnormality Abnormal ECG
--- NOTE | 2016-12-18 07:01 | Discharge Summary 2 SIG ---
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 BRIEF HOSPITAL STAY: 86-year-old female with a history of hypertension presented with recent fall. The patient had multiple recurrent falls for the last two weeks. She reported being dizzy, but denied loss of consciousness, blackouts and fainting. She also complained of left ankle pain. The patient undergone x-ray of the left knee, left pelvis and left foot, all of them were negative for acute fracture. Neurology consult was requested. Echocardiogram revealed preserved ejection fraction of 55% to 60% with moderate left ventricular hypertrophy. Carotid duplex revealed minimal to mild degree of stenosis. Blood pressure was managed only on as needed basis with clonidine to avoid significant decrease in the blood pressure, which could potentially lead to dehydration, more dizziness, and falls. Gentle IV fluids provided. DVT prophylaxis provided. Bowel regimen instituted. The patient was provided pulmonary toilet as needed. Pulse oximetry was stable on the room air. CT of the head revealed no acute intracranial pathology, but revealed findings consistent with chronic age-related changes. Lipid panel revealed elevated LDL- 182, elevated total cholesterol- 276, elevated triglyceride - 189. The patient was started on aspirin as a secondary prevention for CVA as well as the low dose of statin. Check lipid panel in three months. The patient was educated on low-cholesterol and low-fat diet. Per neurologist, the patient with recent onset of progressive gait abnormality and frequent falls presenting with mild paraparesis predominantly hip flexor, rule out lumbar stenosis versus polyneuropathy. Neurologist ordered CT of the lumbar spine to rule out lumbar spinal stenosis. Results still pending. The patient was on Lyrica. Neurologist advised to reduce sedatives. Fall precautions. The patient was working with physical and occupational therapists on daily conditioning exercises. Due to rapid and unexpected improvement in patient's condition, the patient was discharged in one day. DISCHARGE DIAGNOSES: 1. Recurrent falls. 2. Near syncope. 3. Paraparesis of bilateral lower extremities. 4. Possibly lumbar spinal stenosis. 5. Possible polyneuropathy. 6. Hypertension. 7. Mixed hyperlipidemia DISCHARGE MEDICATIONS: See medication reconciliation list. DISCHARGE INSTRUCTIONS: The patient was discharged home. Followup with the primary medical doctor. Kristen Hilliard M.D. I have been assigned to dictate discharge summary on this account and I was not involved in the patient's management. Zainab LeongHenri cook DR: [place] JOB#: [id number] CC: ROMAN
--- NOTE | 2016-12-19 19:27 | Diagnostic Imaging Report ---
APPROVED REPORT CPT Code: 43649 Vascular Symptoms CVA/TIA: Doppler Spectral Velocity Analysis RightLeft RIGHT SIDE: CCA - Imaging reveals no significant plaque in the common carotid artery. ICA The Doppler signal indicates the degree of stenosis is minimal (20%) in the internal carotid artery, and mild (30%) in the external carotid artery. VERTEBRAL - The vertebral artery is patent, without evidence of stenosis or steal. LEFT SIDE: CCA - Imaging reveals no significant plaque in the common carotid artery. ICA The Doppler signal indicates the degree of stenosis is mild (30%) in the internal carotid artery, and minimal (20%) in the external carotid artery. VERTEBRAL - The vertebral artery is patent, without evidence of stenosis or steal.
== END 2016-12-14 17:53 | disposition home or self-care (01) | DRG 53 ==
LOC: EDBD 16:42 → EMR 17:07 → 2E 18:20 → EDBEDREQ 18:46 → 2E 19:24
DX: G82.20 Paraplegia, unspecified (principal); G62.9 Polyneuropathy, unspecified; R55 Syncope and collapse; Z91.81 History of falling; M48.06 Spinal stenosis, lumbar region; I10 Essential (primary) hypertension; E78.2 Mixed hyperlipidemia; R26.9 Unspecified abnormalities of gait and mobility; R42 Dizziness and giddiness; M19.90 Unspecified osteoarthritis, unspecified site; M25.572 Pain in left ankle and joints of left foot; R53.1 Weakness
CPT/HCPCS: 36415; 70450; 72131; 72170; 80053; 80061; 84443; 85025; 85610; 85730; 93005; 93306; 93880; 94664; 94760